=== PATIENT | female | born 1970 | race Hispanic/Latino ===

== ENCOUNTER 2022-04-17 03:35 | Emergency (ER) | payer OTHER ==
[~2022-04-17] VITALS: Ht 152.4 cm; Wt 61.2 kg
[2022-04-17 04:33] VITALS: BP 142/85
== END 2022-04-17 04:37 | disposition home or self-care (01) ==
LOC: EDH 03:35
DX: F10.20 Alcohol dependence, uncomplicated (principal); E78.00 Pure hypercholesterolemia, unspecified; F41.9 Anxiety disorder, unspecified; F32.9 Major depressive disorder, single episode, unspecified

== ENCOUNTER 2023-12-27 16:29 | Emergency (ER) | payer SELFPAY ==
[~2023-12-27] VITALS: Ht 152.4 cm; Wt 62.6 kg
[2023-12-27 16:58] LABS: BASOPHILS # (AUTO) 0.05 K/uL (0.00-0.20); BASOPHILS % (AUTO) 0.4 % (0.0-5.0); EOSINOPHILS # (AUTO) 0.08 K/uL (0.00-0.70); EOSINOPHILS % (AUTO) 0.6 % (0.0-8.0); HEMATOCRIT 43.3 % (36-48); IMMATURE GRANULOCYTE ABSOLUTE 0.04 K/uL (0-1); LYMPHOCYTES # (AUTO) 3.1 K/uL (1.0-4.8); LYMPHOCYTES % (AUTO) 24.8 % (21.0-51.0); MEAN CORPUSCULAR HEMOGLOBIN 34.9 pg (27.0-33.0); MEAN CORPUSCULAR HGB CONC 35.3 g/dL (32.0-36.0); MEAN CORPUSCULAR VOLUME 98.6 fL (79-99); MONOCYTES # (AUTO) 1.1 K/uL (0.1-1.0); MONOCYTES % (AUTO) 8.4 % (3.0-13.0); NEUTROPHILS # (AUTO) 8.2 K/uL (1.8-7.7); NEUTROPHILS % (AUTO) 65.5 % (40.0-77.0); PLATELET COUNT (AUTO) 181 K/uL (130-400); RED BLOOD CELL COUNT(AUTO) 4.39 MIL/uL (4.00-5.50); WHITE BLOOD COUNT (AUTO) 12.6 K/uL (4.8-10.8)
[2023-12-27 17:09] LABS: CREATININE 0.6 mg/dL (0.5-1.0); POTASSIUM 3.5 mmol/L (3.5-5.1)
[2023-12-27] MEDS: CLINDAMYCIN 150 MG CAP PO ONE (17:09)
[2023-12-27] MEDS: ibuPROFEN 800 MG TAB PO ONE (17:10)
[2023-12-27] MEDS ORDERED: CLIN-141 PO (18:08)
[2023-12-27] MEDS ORDERED: IBUP-2077 PO (18:08)
[2023-12-27 18:20] VITALS: BP 127/61; PULSE 98; RESP 20; TEMP 98; O2SAT 98
== END 2023-12-27 18:34 | disposition home or self-care (01) ==
LOC: EDH 16:29
DX: L03.211 Cellulitis of face (principal); E78.00 Pure hypercholesterolemia, unspecified; F32.A Depression, unspecified; F41.9 Anxiety disorder, unspecified
CPT/HCPCS: 36415; 80048; 85025